=== PATIENT | male | born 1955 | race Caucasian/White ===

== ENCOUNTER 2016-10-30 09:45 | Outpatient (CLI) | payer OTHER ==
[2016-10-30 12:56] LABS: #Basophils 0.1 thou/uL (0.0-0.2); #Eosinphils 0.2 thou/uL (0.0-0.7); #Lymphocytes 1.5 thou/uL (1.20-3.40); #Monocytes 0.4 thou/uL (0.11-0.59); #Neutrophils 3.3 thou/uL (1.40-6.50); %Basophils 1.3 % (0.0-1.0); %Eosinophils 2.9 % (0.0-10.0); %Lymphocytes 27.4 % (21.0-51.0); %Monocytes 7.8 % (0.0-10.0); Hematocrit 51.8 % (42.0-52.0); Mean Platelet Volume 6.1 fL (7.4-10.4); Red Blood Cell (RBC) Count 5.67 mill/uL (4.70-6.10); White Blood Cell (WBC) Count 5.5 thou/uL (4.8-10.8)
[2016-10-30 13:21] LABS: ALT (SGPT) 39 U/L (0-55); AST (SGOT) 32 U/L (5-34); Alkaline Phosphatase 61 U/L (40-150); Anion Gap 18 mmol/L (10-20); BUN (Urea Nitrogen) 19 mg/dL (8.4-25.7); Bilirubin, Total 0.7 mg/dL (0.2-1.2); Calc. Creatinine Clearance 0 mL/min (70-130); Calcium 9.5 mg/dL (7.8-10.44); Carbon Dioxide 24 mmol/L (22-29); Chloride 99 mmol/L (98-107); Estimated GFR-MDRD 72; LDL Cholesterol, Calculated 122 mg/dL; Protein, Total 7.5 g/dL (6.0-8.3)
== END 2016-10-30 09:46 | disposition home or self-care (01) ==
LOC: NAVSJIPCSP 09:45
PROVIDERS: ATTEND Family Medicine
DX: I10 Essential (primary) hypertension (principal)
CPT/HCPCS: 36415; 80053; 80061; 84439; 84443; 85025

== ENCOUNTER 2017-03-24 09:05 | Outpatient (CLI) | payer OTHER ==
[2017-03-24 12:52] LABS: ALT (SGPT) 53 U/L (8-55); AST (SGOT) 32 U/L (5-34); Albumin 4.2 g/dL (3.5-5.0); Alkaline Phosphatase 65 U/L (40-150); Bilirubin, Direct 0.2 mg/dL (0.1-0.3); Bilirubin, Total 0.6 mg/dL (0.2-1.2); Cardiac Risk 3.9 (Less than 4.5); Cholesterol 150 mg/dl (< 200 Desired); HDL Cholesterol 38 mg/dL (>60 Neg Risk); LDL Cholesterol, Calculated 97 mg/dL; Protein, Total 6.7 g/dL (6.0-8.3); Triglycerides 75 mg/dL (Less than 150)
== END 2017-03-24 09:06 ==
LOC: NAVSJIPCSP 09:05
PROVIDERS: ATTEND Family Medicine
DX: E78.5 Hyperlipidemia, unspecified (principal)
CPT/HCPCS: 36415; 80061; 80076

== ENCOUNTER 2022-12-01 14:56 | Emergency (ER) | payer OTHER | END 2022-12-01 16:50 | disposition home or self-care (01) | LOC: NAV ERS 14:56 | DX: M77.8 Other enthesopathies, not elsewhere classified (principal); E78.00 Pure hypercholesterolemia, unspecified; I10 Essential (primary) hypertension; Z79.899 Other long term (current) drug therapy ==